=== PATIENT | female | born 1995 | race Caucasian/White ===

== ENCOUNTER 2018-10-28 13:46 | Inpatient (IN) | payer OTHER ==
[2018-10-28] MEDS ORDERED: Pantoprazole 40 MG Vial IVPUSH ONE (13:55)
[2018-10-28] MEDS ORDERED: Famotidine 20 MG/2 ML SDV IVPUSH ONE (13:55)
[2018-10-28] MEDS ORDERED: Lactated Ringers 1,000 ML IV ONE ×2 (13:55→15:45)
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
[2018-10-28 14:37] LABS: CHLORIDE,CL 100 mmol/L (98-107); SODIUM,NA 136 mmol/L (136-145)
[2018-10-28] MEDS ORDERED: GI Cocktail Oral Solution 30 ML PO ONE (14:51)
[2018-10-28] MEDS ORDERED: GI Cocktail Oral Solution 30 ML ONE (17:02)
[2018-10-28] MEDS ORDERED: metroNIDAZOLE/Normal Saline 500 MG in Premix Bag 1 BAG IV ONE (17:29)
[2018-10-28] MEDS ORDERED: Acetaminophen 325 MG Tab PO ONE (17:29)
[2018-10-28] MEDS ORDERED: cefTRIAXone 1 GM in Sodium Chloride 0.9% 100 ML IV ONE (17:29)
[2018-10-28] MEDS ORDERED: Iopamidol 612 MG/ML 100 ML Bottle IVPUSH ONE (17:50)
[2018-10-28] MEDS: Sodium Chloride 0.9% 10 ML Syringe FLUSH PRN ×3 (17:50→22:01)
[2018-10-28] MEDS ORDERED: Temazepam 15 MG Cap PO PRN (20:00)
[2018-10-28] MEDS ORDERED: Metoprolol Tartrate 25 MG Tab PO ONE (21:16)
[2018-10-28] MEDS ORDERED: Metoprolol Tartrate 5 MG/5 ML SDV IVPUSH ONE (21:16)
[2018-10-28] MEDS ORDERED: Ondansetron 4 MG/2 ML SDV IVPUSH PRN (21:17)
[2018-10-28] MEDS: Acetaminophen 325 MG Tab PO PRN (21:58)
[2018-10-28] MEDS ORDERED: Ketorolac 15 MG/ML SDV IVPUSH PRN (23:57)
[2018-10-28] MEDS ORDERED: Ketorolac 30 MG/ML SDV IVPUSH ONE (23:57)
[2018-10-29] MEDS: Sodium Chloride 0.9% 10 ML Syringe FLUSH PRN ×7 (00:12→17:54)
[2018-10-29] MEDS: Levofloxacin/Dextrose 5%-Water 500 MG in Premix Bag 1 BAG IV SCH ×2 (01:27→23:12)
[2018-10-29] MEDS: Pantoprazole 40 MG Vial IVPUSH SCH ×2 (02:31→14:18)
[2018-10-29] MEDS: metroNIDAZOLE/Normal Saline 500 MG in Premix Bag 1 BAG IV SCH ×3 (02:35→17:54)
[2018-10-29] MEDS: cefTRIAXone 1 GM in Sodium Chloride 0.9% 100 ML IV SCH ×2 (05:01→17:54)
[2018-10-29] MEDS: Lactated Ringers 1,000 ML IV SCH ×2 (05:49→17:18)
[2018-10-29] MEDS: Citalopram 20 MG Tab PO SCH (07:42)
[2018-10-29] MEDS: Acetaminophen 325 MG Tab PO PRN ×3 (07:43→21:27)
[2018-10-29 08:07] LABS: CHLORIDE,CL 99 mmol/L (98-107); SODIUM,NA 135 mmol/L (136-145)
[2018-10-29 08:11] LABS: HEMOGLOBIN A1C 5.5 % (4.3-5.7)
[2018-10-29] MEDS: Sodium Chloride 0.9% 10 ML Syringe FLUSH SCH ×2 (08:59→19:46)
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
[2018-10-29] MEDS: Famotidine 20 MG/2 ML SDV IVPUSH SCH (14:19)
[2018-10-29] MEDS: Magnesium Oxide 400 MG Tab PO SCH (17:53)
[2018-10-29] MEDS ORDERED: Sodium Chloride 0.9% 1,000 ML IV ONE (23:34)
[2018-10-30] MEDS: Pantoprazole 40 MG Vial IVPUSH SCH (01:20)
[2018-10-30] MEDS: Famotidine 20 MG/2 ML SDV IVPUSH SCH (01:22)
[2018-10-30] MEDS: metroNIDAZOLE/Normal Saline 500 MG in Premix Bag 1 BAG IV SCH ×2 (01:26→10:29)
[2018-10-30] MEDS: cefTRIAXone 1 GM in Sodium Chloride 0.9% 100 ML IV SCH (04:17)
[2018-10-30] MEDS: Citalopram 20 MG Tab PO SCH (07:25)
[2018-10-30] MEDS: Magnesium Oxide 400 MG Tab PO SCH (07:25)
[2018-10-30] MEDS: Sodium Chloride 0.9% 10 ML Syringe FLUSH SCH (07:25)
[2018-10-30 08:08] LABS: CHLORIDE,CL 102 mmol/L (98-107); SODIUM,NA 138 mmol/L (136-145)
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
== END 2018-10-30 13:30 | disposition home or self-care (01) | DRG 690 ==
LOC: LL.ED 13:46 → LL.MS 19:57
PROVIDERS: ADMIT Family Medicine; ATTEND Emergency Medicine
DX: N39.0 Urinary tract infection, site not specified (principal); N12 Tubulo-interstitial nephritis, not specified as acute or chronic; E86.0 Dehydration; F41.8 Other specified anxiety disorders; M19.90 Unspecified osteoarthritis, unspecified site; B96.20 Unspecified Escherichia coli [E. coli] as the cause of diseases classified elsewhere; E83.42 Hypomagnesemia; I11.0 Hypertensive heart disease with heart failure; I50.9 Heart failure, unspecified; I25.10 Atherosclerotic heart disease of native coronary artery without angina pectoris; K52.9 Noninfective gastroenteritis and colitis, unspecified; J45.20 Mild intermittent asthma, uncomplicated; E78.00 Pure hypercholesterolemia, unspecified; E66.09 Other obesity due to excess calories; K21.9 Gastro-esophageal reflux disease without esophagitis; E11.9 Type 2 diabetes mellitus without complications; E03.9 Hypothyroidism, unspecified; Z90.89 Acquired absence of other organs; Z90.49 Acquired absence of other specified parts of digestive tract; I25.2 Old myocardial infarction; Z71.6 Tobacco abuse counseling; Z79.899 Other long term (current) drug therapy
CPT/HCPCS: 36415; 74022; 74177; 76700; 80053; 80061; 81001; 82150; 82272; 82550; 82553; 83036; 83605; 83690; 83735; 83880; 84443; 84484; 84550; 84703; 85025; 85610; 85730; 87040; 87086; 87088; 87186; 93005; 96361; 96365; 96367; 96375; 99221; 99232; 99238; 99285-25; A9270-GY; C9113; J0696; J1885; J1956; J3490; J7030; J7050; J7120; Q9967